=== PATIENT | male | born 1970 | race Caucasian/White ===

== ENCOUNTER 2016-11-29 21:04 | Emergency (ER) | payer OTHER ==
[2016-11-29 21:37] VITALS: BP 148/96
[2016-11-29] MEDS ORDERED: Bacitracin Oint 1 GM U/D Packet TOP ONE (22:19)
[2016-11-29] MEDS ORDERED: Diphtheria,Pertussis(Acell),Tetanus Vaccine 0.5 ML SDV IM ONE (22:20)
[2016-11-29] MEDS ORDERED: Lidocaine 1% with EPINEPHrine 1:100,000 50 ML MDV INFILT ONE (22:20)
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
== END 2016-11-29 23:16 ==
LOC: JP.ED 21:04
DX: S81.811A Laceration without foreign body, right lower leg, initial encounter (principal); Z23 Encounter for immunization; Z79.899 Other long term (current) drug therapy; W45.8XXA Other foreign body or object entering through skin, initial encounter
CPT/HCPCS: 12002; 90471; 90715; 99283-25